=== PATIENT | female | born 1955 | race Caucasian/White ===

== ENCOUNTER 2016-07-05 13:11 | Inpatient (IN) ==
--- NOTE | 2016-07-05 13:42 | Emergency Department Note ---
Disposition Clinical Impression: Rectal bleeding, UTI (urinary tract infection), Colitis, Sepsis Disposition: Admitted As Inpatient Referrals: Richi Garnica MD [Primary Care Provider] - Forms: ED Satisfaction Letter General Adult HPI - General Chief complaint: ED GI Bleed Stated complaint: Passing blood clots through my bowels Source: patient, family Limitations: no limitations - History of Present Illness HPI Narrative: 60-year-old female with a history of rheumatoid arthritis and irritable bowel syndrome reports emergency department complaining of bloody stool. The patient reports that she had some palpitations last evening, she does describe some anxiety, and then she started having bloody bowel movements. She has no personal history of ulcer disease. She has no history of diverticulitis or previous colitis. The patient has had no vaginal bleeding or discharge, she is status post remote hysterectomy. There is been no back pain or urinary problems. The patient has no history of aneurysm. There is no history of trauma she has diffuse abdominal pain. No syncope but she has felt weak. The patient has not been depressed she denies suicidality or homicidality. No chest pain or shortness of breath. No trouble moving her arms or legs independently. No fever or any other complaint or concern. Pain Scale: 7 - Related Data Home Medications Medication Instructions Recorded Confirmed Folic Acid 05/04/15 05/04/15 Lisinopril 05/04/15 Methotrexate 05/04/15 Prilosec Otc 05/04/15 Remicade (For Outpatient Infusion) 05/04/15 Previous Rx's Medication Instructions Recorded PredniSONE 10 mg PO DAILY #20 tablet 05/04/15 Allergies Allergy/AdvReac Type Severity Reaction Status Date / Time Influenza Virus Vaccines AdvReac Numbness Verified 07/05/16 13:17 All systems ED: reviewed and negative except as stated. Past Medical History - Past Medical History Medical history: Reports: arthritis, hyperlipidemia, hypertension, osteoporosis , other Surgical history: Reports: hysterectomy Psychiatric history: Reports: no psych history BOOKING OFFICER history: Reports: no BOOKING OFFICER history - Social History Smoking Status: Former smoker Smokeless Tobacco Status: No Alcohol use: Reports: none Drug use: Reports: none Physical Exam - General Limitations: no limitations General appearance: alert, in no apparent distress - Head Head exam: atraumatic, normocephalic, normal inspection - Eye Eye exam: Present: normal appearance, PERRL, EOMI - ENT ENT exam: normal exam, normal oropharynx, mucous membranes moist, TM's normal bilaterally, normal external ear exam - Neck Neck exam: Present: normal inspection, full ROM, trachea midline. Absent: tenderness - Chest Chest inspection: Present: symmetric chest wall rise. Absent: tenderness - Respiratory Respiratory exam: Present: normal lung sounds bilaterally. Absent: respiratory distress - Cardiovascular Cardiovascular exam: Present: regular rate, normal rhythm, normal heart sounds - Abdominal Exam Abdominal exam: Present: soft, tenderness, normal bowel sounds. Absent: distention, guarding, rebound, rigidity, Liriano's sign, Rovsing's sign, tenderness at McBurney's Point, ascites, pulsatile mass Abdominal tenderness: Present: diffuse, mild - Extremities Exam Extremities exam: Present: normal inspection, full ROM, normal capillary refill. Absent: tenderness, pedal edema, joint swelling, calf tenderness - Expanded Lower Extremity Exam Lower leg exam: Absent: Homans' sign Neurovascular/Tendon exam: Present: normal capillary refill. Absent: motor deficit, sensory deficit, tendon deficit, extremity cold to touch, pallor - Back Exam Back exam: Present: normal inspection, full ROM. Absent: tenderness, CVA tenderness (R), CVA tenderness (L), vertebral tenderness - Neurological Exam Neurological exam: Present: alert, oriented X3, CN II-XII intact. Absent: motor sensory deficit - Psychiatric Psychiatric exam: Present: normal affect, normal mood - Skin Skin exam: Present: warm, dry, intact, normal color. Absent: rash, cyanosis, diaphoresis, erythema, pallor, mottled Course Vital Signs Temperature 97.6 F 07/05/16 13:18 Pulse Rate 102 07/05/16 13:18 Respiratory Rate 18 07/05/16 13:18 Blood Pressure 129/88 07/05/16 13:18 O2 Sat by Pulse Oximetry 100 07/05/16 13:18 Temperature 97.6 F 07/05/16 13:18 Pulse Rate 102 07/05/16 13:42 Respiratory Rate 18 07/05/16 13:42 Blood Pressure 129/88 07/05/16 13:42 O2 Sat by Pulse Oximetry 100 07/05/16 13:42 Oxygen Delivery Oxygen Delivery Room Air Medical Decision Making - [facility] Narrative Medical decision making narrative: The patient had a bloody stool here, heme occult positive. Her CT reveals what appears to be colitis. White count is elevated, she is tachycardic on arrival, also has what appears to be UTI, she states she has had some frequency. Cipro and Flagyl ordered IV as well as 2 L of IV normal saline. The patient has had persistent bleeding, she appears to have acute colitis, she meet sepsis criteria and has an associated UTI, I think it be appropriate to admit the patient to the hospital. I discussed the case with the hospitalist on-call who has accepted patient to their care. - Lab Data Lab results reviewed: Yes I reviewed the patient's lab results. Result diagrams: 07/05/16 14:16 07/05/16 14:16 Lab Results 07/05/16 07/05/16 07/05/16 Range/Units 14:15 14:16 14:16 WBC 12.2 H D (4.3-11.1) K/mcL RBC 4.68 (3.82-4.97) M/mcL Hgb 13.9 (11.5-15.4) g/dL Hct 40.5 (35.3-44.9) % MCV 86.5 (83.0-100.0) fL MCH 29.7 (28.0-33.3) pg MCHC 34.3 (31.6-35.5) g/dL RDW 13.4 (11.5-14.5) % Plt Count 269 (140-400) K/mcL MPV 9.0 L (9.4-12.4) fL Immature Gran % 0.4 (0-4) % Seg Neutrophils % 71.9 % Lymphocytes % 19.3 % Monocytes % 7.1 % Eosinophils % 1.1 % Basophils % 0.2 % Neutrophils # 8.8 (1.6-8.9) K/mcL Lymphocytes # 2.4 (0.6-4.6) K/mcL Monocytes # 0.9 (0.0-1.3) K/mcL Eosinophils # 0.1 (0.0-0.6) K/mcL Basophils # 0.0 (0.0-0.2) K/mcL Immature Plt Fraction 2.5 (1.1-6.1) % PT 11.2 (9.4-12.1) Seconds INR 1.0 APTT 28.5 (26.0-36.0) Seconds Sodium (136-145) mEq/L Potassium (3.5-4.5) mEq/L Chloride (98-109) mEq/L Carbon Dioxide (19-29) mEq/L BUN (7-20) mg/dL Creatinine (0.57-1.11) mg/dL Est GFR ( Amer) (> 60) Est GFR (Non-Af Amer) (> 60) BUN/Creatinine Ratio (6-26) Glucose (70-99) mg/dL Calculated Osmolality (280-300) Lactic Acid (0.5-2.2) mmol/L Calcium (8.6-10.8) mg/dL Total Bilirubin (0.2-1.2) mg/dL Direct Bilirubin (0.0-0.5) mg/dL Indirect Bilirubin (0.0-1.2) mg/dL AST (5-34) Units/L ALT (0-55) Units/L Alkaline Phosphatase (38-126) Units/L C-Reactive Protein (Less than 5) mg/L Serum Total Protein (6.0-8.3) g/dL Albumin (3.5-5.0) g/dL Globulin (2.4-3.5) g/dL Albumin/Globulin Ratio (1.1-2.2) Lipase (8-78) Units/L Urine Color Yellow (Yellow) Urine Clarity Clear (Clear) Urine pH 6.0 (5.0-8.0) pH Units Ur Specific [place] 1.010 (1.010-1.025) Urine Protein Negative (Neg-Trace) mg/dL Urine Glucose (UA) Normal (Normal) mg/dL Urine Ketones Negative (Negative) mg/dL Urine Blood Trace H (Negative) Urine Nitrite Negative (Negative) Urine Bilirubin Negative (Negative) Urine Urobilinogen Normal (Normal) mg/dL Ur Leukocyte Esterase Small H (Negative) Urine Microscopic RBC 0-3 (0-3) per hpf Urine Microscopic WBC 5-15 H (0-3) per hpf Ur Squamous Epith Cells Many H (None-Few) per lpf Urine Bacteria None Seen (None-Few) per hpf Hyaline Casts None Seen (None-Few) per lpf Ur Culture Indicated? YES A (NO) Stool Occult Blood (Negative) Blood Type Antibody Screen 07/05/16 07/05/16 07/05/16 Range/Units 14:16 14:16 14:16 WBC (4.3-11.1) K/mcL RBC (3.82-4.97) M/mcL Hgb (11.5-15.4) g/dL Hct (35.3-44.9) % MCV (83.0-100.0) fL MCH (28.0-33.3) pg MCHC (31.6-35.5) g/dL RDW (11.5-14.5) % Plt Count (140-400) K/mcL MPV (9.4-12.4) fL Immature Gran % (0-4) % Seg Neutrophils % % Lymphocytes % % Monocytes % % Eosinophils % % Basophils % % Neutrophils # (1.6-8.9) K/mcL Lymphocytes # (0.6-4.6) K/mcL Monocytes # (0.0-1.3) K/mcL Eosinophils # (0.0-0.6) K/mcL Basophils # (0.0-0.2) K/mcL Immature Plt Fraction (1.1-6.1) % PT (9.4-12.1) Seconds INR APTT (26.0-36.0) Seconds Sodium 139 (136-145) mEq/L Potassium 3.8 (3.5-4.5) mEq/L Chloride 103 (98-109) mEq/L Carbon Dioxide 28 (19-29) mEq/L BUN 13 (7-20) mg/dL Creatinine 0.99 (0.57-1.11) mg/dL Est GFR ( Amer) > 60 (> 60) Est GFR (Non-Af Amer) 58 L (> 60) BUN/Creatinine Ratio 13 (6-26) Glucose 106 H (70-99) mg/dL Calculated Osmolality 289 (280-300) Lactic Acid 0.9 (0.5-2.2) mmol/L Calcium 9.9 (8.6-10.8) mg/dL Total Bilirubin 0.7 (0.2-1.2) mg/dL Direct Bilirubin 0.2 (0.0-0.5) mg/dL Indirect Bilirubin 0.5 (0.0-1.2) mg/dL AST 13 (5-34) Units/L ALT 16 (0-55) Units/L Alkaline Phosphatase 72 (38-126) Units/L C-Reactive Protein 21 H (Less than 5) mg/L Serum Total Protein 7.6 (6.0-8.3) g/dL Albumin 4.1 (3.5-5.0) g/dL Globulin 3.5 (2.4-3.5) g/dL Albumin/Globulin Ratio 1.2 (1.1-2.2) Lipase 12 (8-78) Units/L Urine Color (Yellow) Urine Clarity (Clear) Urine pH (5.0-8.0) pH Units Ur Specific [place] (1.010-1.025) Urine Protein (Neg-Trace) mg/dL Urine Glucose (UA) (Normal) mg/dL Urine Ketones (Negative) mg/dL Urine Blood (Negative) Urine Nitrite (Negative) Urine Bilirubin (Negative) Urine Urobilinogen (Normal) mg/dL Ur Leukocyte Esterase (Negative) Urine Microscopic RBC (0-3) per hpf Urine Microscopic WBC (0-3) per hpf Ur Squamous Epith Cells (None-Few) per lpf Urine Bacteria (None-Few) per hpf Hyaline Casts (None-Few) per lpf Ur Culture Indicated? (NO) Stool Occult Blood (Negative) Blood Type A POSITIVE Antibody Screen NEGATIVE 07/05/16 Range/Units 15:21 WBC (4.3-11.1) K/mcL RBC (3.82-4.97) M/mcL Hgb (11.5-15.4) g/dL Hct (35.3-44.9) % MCV (83.0-100.0) fL MCH (28.0-33.3) pg MCHC (31.6-35.5) g/dL RDW (11.5-14.5) % Plt Count (140-400) K/mcL MPV (9.4-12.4) fL Immature Gran % (0-4) % Seg Neutrophils % % Lymphocytes % % Monocytes % % Eosinophils % % Basophils % % Neutrophils # (1.6-8.9) K/mcL Lymphocytes # (0.6-4.6) K/mcL Monocytes # (0.0-1.3) K/mcL Eosinophils # (0.0-0.6) K/mcL Basophils # (0.0-0.2) K/mcL Immature Plt Fraction (1.1-6.1) % PT (9.4-12.1) Seconds INR APTT (26.0-36.0) Seconds Sodium (136-145) mEq/L Potassium (3.5-4.5) mEq/L Chloride (98-109) mEq/L Carbon Dioxide (19-29) mEq/L BUN (7-20) mg/dL Creatinine (0.57-1.11) mg/dL Est GFR ( Amer) (> 60) Est GFR (Non-Af Amer) (> 60) BUN/Creatinine Ratio (6-26) Glucose (70-99) mg/dL Calculated Osmolality (280-300) Lactic Acid (0.5-2.2) mmol/L Calcium (8.6-10.8) mg/dL Total Bilirubin (0.2-1.2) mg/dL Direct Bilirubin (0.0-0.5) mg/dL Indirect Bilirubin (0.0-1.2) mg/dL AST (5-34) Units/L ALT (0-55) Units/L Alkaline Phosphatase (38-126) Units/L C-Reactive Protein (Less than 5) mg/L Serum Total Protein (6.0-8.3) g/dL Albumin (3.5-5.0) g/dL Globulin (2.4-3.5) g/dL Albumin/Globulin Ratio (1.1-2.2) Lipase (8-78) Units/L Urine Color (Yellow) Urine Clarity (Clear) Urine pH (5.0-8.0) pH Units Ur Specific [place] (1.010-1.025) Urine Protein (Neg-Trace) mg/dL Urine Glucose (UA) (Normal) mg/dL Urine Ketones (Negative) mg/dL Urine Blood (Negative) Urine Nitrite (Negative) Urine Bilirubin (Negative) Urine Urobilinogen (Normal) mg/dL Ur Leukocyte Esterase (Negative) Urine Microscopic RBC (0-3) per hpf Urine Microscopic WBC (0-3) per hpf Ur Squamous Epith Cells (None-Few) per lpf Urine Bacteria (None-Few) per hpf Hyaline Casts (None-Few) per lpf Ur Culture Indicated? (NO) Stool Occult Blood Positive A (Negative) Blood Type Antibody Screen - Radiology Data Radiology results reviewed: Yes I reviewed the patient's radiology results.
[2016-07-05 14:29] LABS: Basophils % 0.2 %; Eosinophils # 0.1 K/mcL (0.0-0.6); Eosinophils % 1.1 %; Hematocrit 40.5 % (35.3-44.9); Hemoglobin 13.9 g/dL (11.5-15.4); Immature Granulocytes % 0.4 % (0-4); Immature Platelets 2.5 % (1.1-6.1); Lymphocytes # 2.4 K/mcL (0.6-4.6); Lymphocytes % 19.3 %; Mean Corpuscular HGB Conc 34.3 g/dL (31.6-35.5); Mean Corpuscular Hemoglobin 29.7 pg (28.0-33.3); Mean Corpuscular Volume 86.5 fL (83.0-100.0); Monocytes # 0.9 K/mcL (0.0-1.3); Monocytes % 7.1 %; Neutrophils # 8.8 K/mcL (1.6-8.9); Platelet Count 269 K/mcL (140-400); Red Blood Count 4.68 M/mcL (3.82-4.97); Red Cell Distribution Width 13.4 % (11.5-14.5); Segmented Neutrophils % 71.9 %
[2016-07-05 14:31] LABS: Bilirubin,Urine Negative (Negative); Blood,Urine Trace (Negative); Clarity,Urine Clear (Clear); Color,Urine Yellow (Yellow); Glucose,Urine (UA) Normal (Normal); Ketones,Urine Negative (Negative); Leukocyte Esterase,Urine Small (Negative); Nitrite,Urine Negative (Negative); Protein,Urine Negative (Neg-Trace); Urobilinogen,Urine Normal (Normal)
[2016-07-05 14:32] LABS: Bacteria,Urine None Seen per hpf (None-Few); Hyaline Casts,Urine None Seen per lpf (None-Few); RBC,Urine 0-3 per hpf (0-3); Squamous Epithelial Cell,Urine Many per lpf (None-Few)
[2016-07-05 14:33] LABS: Prothrombin Time 11.2 Seconds (9.4-12.1)
[2016-07-05 14:36] LABS: Activated Partial Thrombo Time 28.5 Seconds (26.0-36.0)
[2016-07-05 14:46] LABS: Alanine Aminotransferase 16 Units/L (0-55); Albumin 4.1 g/dL (3.5-5.0); Albumin/Globulin Ratio 1.2 (1.1-2.2); Alkaline Phosphatase 72 Units/L (38-126); Aspartate Amino Transferase 13 Units/L (5-34); BUN/Creatinine Ratio 13 (6-26); Bilirubin,Direct 0.2 mg/dL (0.0-0.5); Bilirubin,Indirect 0.5 mg/dL (0.0-1.2); Bilirubin,Total 0.7 mg/dL (0.2-1.2); Blood Urea Nitrogen 13 mg/dL (7-20); C-Reactive Protein 21 mg/L (Less than 5); Calcium 9.9 mg/dL (8.6-10.8); Carbon Dioxide 28 mEq/L (19-29); Chloride 103 mEq/L (98-109); Globulin 3.5 g/dL (2.4-3.5); Glucose 106 mg/dL (70-99); Lipase 12 Units/L (8-78); Osmolality,Calculated 289 (280-300); Potassium 3.8 mEq/L (3.5-4.5); Sodium 139 mEq/L (136-145); Total Protein 7.6 g/dL (6.0-8.3); eGFR For African Americans > 60 (> 60); eGFR For Non-African Americans 58 (> 60)
[2016-07-05] MEDS ORDERED: MetroNIDAZOLE 500 MG/100 ML 500 MG/100 ML BAG IVPB ONE (18:00)
[2016-07-05] MEDS: 0.9 % Sodium Chloride 1,000 ML IVC SCH ×5 (20:03→22:20)
[2016-07-05] MEDS ORDERED: traMADol 50 MG TABLET PO ONE (20:40)
[2016-07-05] MEDS ORDERED: Naloxone 0.4 MG/ML INJ IVP PRN (21:36)
--- NOTE | 2016-07-05 22:25 | Internal Med History&Physical ---
Date of Encounter: 07/05/16 Time of Encounter: 22:19 Assessment and Plan (1) Sepsis Current visit: Yes Status: Acute Patient with UTI, colitis, elevated WBC count to 12.2 and tachycardia with HR in the low 100s initially, meeting criteria for sepsis. Lactate normal at 0.9. Blood cultures ordered and sent. 2L fluid bolus given. 0.9NS at 100mL/hr. IVPB Cipro and Flagyl Qualifiers: Sepsis type: sepsis due to unspecified organism Qualified Code(s): A41.9 - Sepsis, unspecified organism (2) Colitis Current visit: Yes Status: Acute patient with several episodes of bloody diarrhea, nausea, poor appetite. She reports history of IBS. CT abd/pelvis showed circumferential wall thickening and mild surrounding fat stranding involving the transverse and proximal colon consistent with colitis. 2L of bolus given in ED IV fluids 0.9NS at 100mL/hr Cipro and Flagyl IVPB Follow up with GI as an outpatient. (3) Rectal bleeding Current visit: Yes Status: Acute Patient with bloody stools since yesterday. Hgb/Hct 13.9/40.5. No indication for transfusion at this time. H&H Q6 hours. Patient should follow up with gastroenterology as an outpatient for colonoscopy once colitis resolves. (4) UTI (urinary tract infection) Current visit: Yes Status: Acute UA consistent with UTI. Patient getting IVPB Cipro which should cover her UTI. Await culture results. Qualifiers: Urinary tract infection type: acute cystitis Hematuria presence: without hematuria Qualified Code(s): N30.00 - Acute cystitis without hematuria (5) DVT prophylaxis Current visit: Yes Status: Acute encourage ambulation anti-embolic stockings pharmacologic prophylaxis contraindicated in patient with active bleed. Internal Medicine - H&P: HPI Chief complaint: bloody stool Admitted From: Emergency Dept Plans for Post Hospital Care: Home History of present illness: Ms. Tinoco is a 60 year old female with rheumatoid arthritis, IBS, and hypertension presented to the emergency department today with complaints of bloody stool. Patient reports that yesterday evening she had an episode which began with palpitations warm numbness and tingling in her hands and abdominal pain with an urgent need to defecate. She describes this as her common symptoms of her IBS. However this episode she had bloody stool, and she has never had bloody stools before. She had another episode this morning which prompted her to come to the emergency department. She had an episode again in the emergency department and they were able to send the stool for occult blood and it was positive. Patient states her episodes have been going on for 5 years , are random in nature, they can be as frequent as twice a week or as infrequent as every 6 months. Reports she had colonoscopy and EGD when these episodes first started that revealed nothing and so she was diagnosed with IBS. She denies any lightheadedness, dizziness, chest pain, shortness of breath. She reports her abdominal pain is relieved after defecation. She reports she has had nausea since last night and poor appetite. Evaluation in the emergency department included a CT of the abdomen and pelvis which showed circumferential wall thickening and mild surrounding fat stranding involving the transverse and proximal colon consistent with colitis. Her blood cell count was mildly elevated at 12.2. UA was concerning for UTI. Patient was tachycardic with heart rate in the low 100s. She was given fluid boluses and started on Cipro and Flagyl. On exam, patient is alert and oriented, in no acute distress. Heart is regular rate and rhythm, lungs are clear bilaterally to auscultation. Abdomen is soft, nontender, positive bowel sounds. Past Med Surg Social Fam HX - Past Medical History Medical history: hypertension, osteoporosis, RA Psychiatric history: no psych history - Past Surgical History Surgical History: hysterectomy - Social History Smoking Status: Former smoker Smokeless Tobacco Status: No Alcohol use: none Drug use: none - Family History Father Living Status: Cause of : Arhritis- amputation complications Hx Family Musculoskeletal Disorders: Yes (Rhematoid Arhtritis) Mother Living Status: Cause of : Leukemia Hx Family Cancer: Yes (Lymphatic Leukemia) Internal Medicine - H&P: Meds Folic Acid 800 mg PO DAILY 05/04/15 [History] Methotrexate mg PO QWEEK 05/04/15 [History] Prilosec Otc 20 mg PO DAILY 05/04/15 [History] Dicyclomine [Bentyl] 10 mg PO BID 07/05/16 [History] Lisinopril-HCTZ 10-12.5 [Prinzide 10-12.5] 10 - 12.5 mg PO DAILY 07/05/16 [ History] Zolpidem [Ambien] 10 mg PO HS PRN 07/05/16 [History] Allergies Influenza Virus Vaccines Adverse Reaction (Verified 07/05/16 13:17) Numbness All Systems PM: A 10-system review of systems was performed and is negative for pertinent findings except as documented above in the HPI. - Constitutional Constitutional: no chills, no fever(s), no night sweats - EENT Eyes: no change in vision, no discharge, no pain, no photophobia Nose, mouth and throat: no dysphagia, no nasal discharge, no neck pain, no sore throat - Cardiovascular Cardiovascular ROS IM: no chest pain, no diaphoresis, no dyspnea, no lightheadedness, no palpitations, no syncope - Respiratory Respiratory: no cough, no dyspnea, no wheezing, no excessive phlegm production - Gastrointestinal Gastrointestinal: abdominal pain, bloating, diarrhea, hematochezia, nausea, no hematemesis, no melena, no vomiting - Genitourinary Genitourinary: no change in urinary stream, no dysuria, no flank pain, no hematuria - Musculoskeletal Musculoskeletal ROS IM: no numbness, no tingling - Integumentary Integumentary IM: no rash, no unusual bruising - Neurological Neurological ROS: no confusion, no convulsions, no focal weakness, no numbness, no tingling, no tremor(s) - Hematologic/Lymphatic Hematologic/Lymphatic: no easy bruising - Constitutional Vitals: Temp Pulse Resp BP Pulse Ox 98.0 F 86 16 148/90 97 07/05/16 21:46 07/05/16 21:46 07/05/16 21:46 07/05/16 21:46 07/05/16 21:46 General appearance: Present: A&O X 3, pleasant, no acute distress - Head Head exam: Present: atraumatic, normocephalic - Eye Eye exam: Present: PERRL, conjuntiva pink, sclera anicteric Pupils: Present: PERRL - Neck Neck exam general surgery: Present: supple, trachea midline. Absent: lymphadenopathy - Respiratory Respiratory exam: Present: CTAB. Absent: accessory muscle use, rales, rhonchi, wheezes - Cardiovascular Cardiovascular exam: Present: RRR, +S1, +S2. Absent: diastolic murmur, gallop, rubs, systolic murmur - GI/Abdominal GI/Abdominal exam: Present: normal bowel sounds, soft, tenderness (mild diffuse) , no peritoneal signs. Absent: distended - Extremities Exam Extremities exam: Present: warm, radial pulses palpable and symetrical. Absent : calf tenderness, cyanotic, pedal edema - Neurological Exam Neurological exam: Present: CN II-XII intact, oriented X3, no focal deficits. Absent: facial droop, speech deficit - Skin Skin exam: Present: dry, intact Internal Med - H&P Results - Labs CBC & Chem 7: 07/05/16 22:27 07/05/16 14:16 Labs: All Lab Results (24 Hours) 07/05/16 07/05/16 07/05/16 Range/Units 14:15 14:16 14:16 WBC 12.2 H D (4.3-11.1) K/mcL RBC 4.68 (3.82-4.97) M/mcL Hgb 13.9 (11.5-15.4) g/dL Hct 40.5 (35.3-44.9) % MCV 86.5 (83.0-100.0) fL MCH 29.7 (28.0-33.3) pg MCHC 34.3 (31.6-35.5) g/dL RDW 13.4 (11.5-14.5) % Plt Count 269 (140-400) K/mcL MPV 9.0 L (9.4-12.4) fL Immature Gran % 0.4 (0-4) % Seg Neutrophils % 71.9 % Lymphocytes % 19.3 % Monocytes % 7.1 % Eosinophils % 1.1 % Basophils % 0.2 % Neutrophils # 8.8 (1.6-8.9) K/mcL Lymphocytes # 2.4 (0.6-4.6) K/mcL Monocytes # 0.9 (0.0-1.3) K/mcL Eosinophils # 0.1 (0.0-0.6) K/mcL Basophils # 0.0 (0.0-0.2) K/mcL Immature Plt Fraction 2.5 (1.1-6.1) % PT 11.2 (9.4-12.1) Seconds INR 1.0 APTT 28.5 (26.0-36.0) Seconds Sodium (136-145) mEq/L Potassium (3.5-4.5) mEq/L Chloride (98-109) mEq/L Carbon Dioxide (19-29) mEq/L BUN (7-20) mg/dL Creatinine (0.57-1.11) mg/dL Est GFR ( Amer) (> 60) Est GFR (Non-Af Amer) (> 60) BUN/Creatinine Ratio (6-26) Glucose (70-99) mg/dL Calculated Osmolality (280-300) Lactic Acid (0.5-2.2) mmol/L Calcium (8.6-10.8) mg/dL Total Bilirubin (0.2-1.2) mg/dL Direct Bilirubin (0.0-0.5) mg/dL Indirect Bilirubin (0.0-1.2) mg/dL AST (5-34) Units/L ALT (0-55) Units/L Alkaline Phosphatase (38-126) Units/L C-Reactive Protein (Less than 5) mg/L Serum Total Protein (6.0-8.3) g/dL Albumin (3.5-5.0) g/dL Globulin (2.4-3.5) g/dL Albumin/Globulin Ratio (1.1-2.2) Lipase (8-78) Units/L Urine Color Yellow (Yellow) Urine Clarity Clear (Clear) Urine pH 6.0 (5.0-8.0) pH Units Ur Specific [place] 1.010 (1.010-1.025) Urine Protein Negative (Neg-Trace) mg/dL Urine Glucose (UA) Normal (Normal) mg/dL Urine Ketones Negative (Negative) mg/dL Urine Blood Trace H (Negative) Urine Nitrite Negative (Negative) Urine Bilirubin Negative (Negative) Urine Urobilinogen Normal (Normal) mg/dL Ur Leukocyte Esterase Small H (Negative) Urine Microscopic RBC 0-3 (0-3) per hpf Urine Microscopic WBC 5-15 H (0-3) per hpf Ur Squamous Epith Cells Many H (None-Few) per lpf Urine Bacteria None Seen (None-Few) per hpf Hyaline Casts None Seen (None-Few) per lpf Ur Culture Indicated? YES A (NO) Stool Occult Blood (Negative) Blood Type Antibody Screen 07/05/16 07/05/16 07/05/16 Range/Units 14:16 14:16 14:16 WBC (4.3-11.1) K/mcL RBC (3.82-4.97) M/mcL Hgb (11.5-15.4) g/dL Hct (35.3-44.9) % MCV (83.0-100.0) fL MCH (28.0-33.3) pg MCHC (31.6-35.5) g/dL RDW (11.5-14.5) % Plt Count (140-400) K/mcL MPV (9.4-12.4) fL Immature Gran % (0-4) % Seg Neutrophils % % Lymphocytes % % Monocytes % % Eosinophils % % Basophils % % Neutrophils # (1.6-8.9) K/mcL Lymphocytes # (0.6-4.6) K/mcL Monocytes # (0.0-1.3) K/mcL Eosinophils # (0.0-0.6) K/mcL Basophils # (0.0-0.2) K/mcL Immature Plt Fraction (1.1-6.1) % PT (9.4-12.1) Seconds INR APTT (26.0-36.0) Seconds Sodium 139 (136-145) mEq/L Potassium 3.8 (3.5-4.5) mEq/L Chloride 103 (98-109) mEq/L Carbon Dioxide 28 (19-29) mEq/L BUN 13 (7-20) mg/dL Creatinine 0.99 (0.57-1.11) mg/dL Est GFR ( Amer) > 60 (> 60) Est GFR (Non-Af Amer) 58 L (> 60) BUN/Creatinine Ratio 13 (6-26) Glucose 106 H (70-99) mg/dL Calculated Osmolality 289 (280-300) Lactic Acid 0.9 (0.5-2.2) mmol/L Calcium 9.9 (8.6-10.8) mg/dL Total Bilirubin 0.7 (0.2-1.2) mg/dL Direct Bilirubin 0.2 (0.0-0.5) mg/dL Indirect Bilirubin 0.5 (0.0-1.2) mg/dL AST 13 (5-34) Units/L ALT 16 (0-55) Units/L Alkaline Phosphatase 72 (38-126) Units/L C-Reactive Protein 21 H (Less than 5) mg/L Serum Total Protein 7.6 (6.0-8.3) g/dL Albumin 4.1 (3.5-5.0) g/dL Globulin 3.5 (2.4-3.5) g/dL Albumin/Globulin Ratio 1.2 (1.1-2.2) Lipase 12 (8-78) Units/L Urine Color (Yellow) Urine Clarity (Clear) Urine pH (5.0-8.0) pH Units Ur Specific [place] (1.010-1.025) Urine Protein (Neg-Trace) mg/dL Urine Glucose (UA) (Normal) mg/dL Urine Ketones (Negative) mg/dL Urine Blood (Negative) Urine Nitrite (Negative) Urine Bilirubin (Negative) Urine Urobilinogen (Normal) mg/dL Ur Leukocyte Esterase (Negative) Urine Microscopic RBC (0-3) per hpf Urine Microscopic WBC (0-3) per hpf Ur Squamous Epith Cells (None-Few) per lpf Urine Bacteria (None-Few) per hpf Hyaline Casts (None-Few) per lpf Ur Culture Indicated? (NO) Stool Occult Blood (Negative) Blood Type A POSITIVE Antibody Screen NEGATIVE 07/05/16 07/05/16 Range/Units 15:21 22:27 WBC (4.3-11.1) K/mcL RBC (3.82-4.97) M/mcL Hgb 13.1 (11.5-15.4) g/dL Hct 38.2 (35.3-44.9) % MCV (83.0-100.0) fL MCH (28.0-33.3) pg MCHC (31.6-35.5) g/dL RDW (11.5-14.5) % Plt Count (140-400) K/mcL MPV (9.4-12.4) fL Immature Gran % (0-4) % Seg Neutrophils % % Lymphocytes % % Monocytes % % Eosinophils % % Basophils % % Neutrophils # (1.6-8.9) K/mcL Lymphocytes # (0.6-4.6) K/mcL Monocytes # (0.0-1.3) K/mcL Eosinophils # (0.0-0.6) K/mcL Basophils # (0.0-0.2) K/mcL Immature Plt Fraction (1.1-6.1) % PT (9.4-12.1) Seconds INR APTT (26.0-36.0) Seconds Sodium (136-145) mEq/L Potassium (3.5-4.5) mEq/L Chloride (98-109) mEq/L Carbon Dioxide (19-29) mEq/L BUN (7-20) mg/dL Creatinine (0.57-1.11) mg/dL Est GFR ( Amer) (> 60) Est GFR (Non-Af Amer) (> 60) BUN/Creatinine Ratio (6-26) Glucose (70-99) mg/dL Calculated Osmolality (280-300) Lactic Acid (0.5-2.2) mmol/L Calcium (8.6-10.8) mg/dL Total Bilirubin (0.2-1.2) mg/dL Direct Bilirubin (0.0-0.5) mg/dL Indirect Bilirubin (0.0-1.2) mg/dL AST (5-34) Units/L ALT (0-55) Units/L Alkaline Phosphatase (38-126) Units/L C-Reactive Protein (Less than 5) mg/L Serum Total Protein (6.0-8.3) g/dL Albumin (3.5-5.0) g/dL Globulin (2.4-3.5) g/dL Albumin/Globulin Ratio (1.1-2.2) Lipase (8-78) Units/L Urine Color (Yellow) Urine Clarity (Clear) Urine pH (5.0-8.0) pH Units Ur Specific [place] (1.010-1.025) Urine Protein (Neg-Trace) mg/dL Urine Glucose (UA) (Normal) mg/dL Urine Ketones (Negative) mg/dL Urine Blood (Negative) Urine Nitrite (Negative) Urine Bilirubin (Negative) Urine Urobilinogen (Normal) mg/dL Ur Leukocyte Esterase (Negative) Urine Microscopic RBC (0-3) per hpf Urine Microscopic WBC (0-3) per hpf Ur Squamous Epith Cells (None-Few) per lpf Urine Bacteria (None-Few) per hpf Hyaline Casts (None-Few) per lpf Ur Culture Indicated? (NO) Stool Occult Blood Positive A (Negative) Blood Type Antibody Screen - Diagnostic Studies CT scan - abdomen Additional comments: Abdomen/Pelvis CT 04/08/17 15:38 IMPRESSION: Circumferential wall thickening and mild surrounding fat stranding involves the transverse and proximal descending colon, consistent with colitis. D/ / Harvey Watters MD / Harvey Watters MD Interpreting Provider: Harvey Watters MD
[2016-07-05 22:34] LABS: Hematocrit 38.2 % (35.3-44.9); Hemoglobin 13.1 g/dL (11.5-15.4)
[2016-07-06 05:10] LABS: Basophils % 0.3 %; Eosinophils # 0.2 K/mcL (0.0-0.6); Eosinophils % 2.1 %; Hematocrit 38.2 % (35.3-44.9); Hemoglobin 12.8 g/dL (11.5-15.4); Immature Granulocytes % 0.4 % (0-4); Lymphocytes # 2.8 K/mcL (0.6-4.6); Mean Corpuscular HGB Conc 33.5 g/dL (31.6-35.5); Mean Corpuscular Hemoglobin 29.5 pg (28.0-33.3); Mean Platelet Volume 9.7 fL (9.4-12.4); Monocytes # 0.8 K/mcL (0.0-1.3); Monocytes % 7.9 %; Neutrophils # 5.8 K/mcL (1.6-8.9); Platelet Count 228 K/mcL (140-400); Red Blood Count 4.34 M/mcL (3.82-4.97); Red Cell Distribution Width 13.8 % (11.5-14.5); Segmented Neutrophils % 60.3 %
[2016-07-06 05:28] LABS: BUN/Creatinine Ratio 11 (6-26); Blood Urea Nitrogen 10 mg/dL (7-20); Calcium 8.8 mg/dL (8.6-10.8); Carbon Dioxide 25 mEq/L (19-29); Chloride 106 mEq/L (98-109); Glucose 100 mg/dL (70-99); Osmolality,Calculated 289 (280-300); Potassium 3.2 mEq/L (3.5-4.5); Sodium 140 mEq/L (136-145); eGFR For African Americans > 60 (> 60); eGFR For Non-African Americans > 60 (> 60)
[2016-07-06] MEDS: MetroNIDAZOLE 500 MG/100 ML 500 MG/100 ML BAG IVPB SCH ×3 (05:37→21:09)
[2016-07-06] MEDS: 0.9 % Sodium Chloride 1,000 ML IVC SCH ×2 (05:38→20:02)
[2016-07-06] MEDS: Folic Acid 1 MG TABLET PO SCH (08:02)
[2016-07-06] MEDS: Acetaminophen 325 MG TABLET PO PRN ×2 (08:05→18:33)
--- NOTE | 2016-07-06 15:23 | Internal Med Progress Note ---
Date of Encounter: 07/06/16 Time of Encounter: 15:22 - Assessment and plan (1) Rectal bleeding Current Visit: Yes Status: Acute Assessment and plan: I will continue treatment with ciprofloxacin and Flagyl. Follow-up white blood cell count temperature curve and serial abdominal exam. Follow-up clinically. Follow-up hemoglobin and hematocrit in the morning (2) UTI (urinary tract infection) Current Visit: Yes Status: Acute Assessment and plan: Continues with Cipro. Follow-up urine culture and sensitivities. Qualifiers: Urinary tract infection type: acute cystitis Hematuria presence: without hematuria Qualified Code(s): N30.00 - Acute cystitis without hematuria (3) Colitis Current Visit: Yes Status: Acute Assessment and plan: Cipro and Flagyl. (4) Sepsis Current Visit: Yes Status: Acute Assessment and plan: IV fluids and IV antibiotics. No evidence of severe sepsis. Follow-up Howard cultures. Qualifiers: Sepsis type: sepsis due to unspecified organism Qualified Code(s): A41.9 - Sepsis, unspecified organism (5) DVT prophylaxis Current Visit: Yes Status: Acute Assessment and plan: I will start Lovenox. - Subjective Interval history: patient reports abdominal pain and liquid diarrhea started yesterday afternoon follwn passing dark blood and blood clots per rectum. She had several associated abdominal pain. Currently she reports mild abdominal pain, rectal bleeding has stopped over the last 24 hours. She denies chest pain shortness of breath visual loss and headache. - Constitutional Vitals: Temp Pulse Resp BP Pulse Ox 97.6 F 73 16 107/72 96 07/06/16 14:46 07/06/16 14:46 07/06/16 14:46 07/06/16 14:46 07/06/16 14:46 General appearance: Present: A&O X 3, pleasant, no acute distress - Eye Eye exam: Present: PERRL, conjuntiva pink, sclera anicteric Pupils: Present: PERRL - Respiratory Respiratory exam: Present: CTAB. Absent: accessory muscle use, rales, rhonchi, wheezes - Cardiovascular Cardiovascular exam: Present: RRR, +S1, +S2. Absent: diastolic murmur, gallop, rubs, systolic murmur - GI/Abdominal GI/Abdominal exam: Present: normal bowel sounds, soft, no peritoneal signs. Absent: distended, tenderness - Extremities Exam Extremities exam: Present: warm, radial pulses palpable and symetrical. Absent : calf tenderness, cyanotic, pedal edema - Skin Skin exam: Present: dry, intact Internal Medicine: Result - Labs CBC & Chem 7: 07/06/16 03:40 07/06/16 03:40 Labs: Short CBC 07/05/16 07/06/16 Range/Units 22:27 03:40 WBC 9.6 (4.3-11.1) K/mcL Hgb 13.1 12.8 (11.5-15.4) g/dL Hct 38.2 38.2 (35.3-44.9) % Plt Count 228 (140-400) K/mcL Neutrophils # 5.8 (1.6-8.9) K/mcL BMP 07/06/16 03:40 Sodium 140 Potassium 3.2 L Chloride 106 Carbon Dioxide 25 BUN 10 Creatinine 0.91 Glucose 100 H Calcium 8.8 - ABG Interpretation ABG results: PT/INR, D-dimer PT 11.2 Seconds (9.4-12.1) 07/05/16 14:16 Consult Discharge Plan - Plan Referrals: Richi Garnica MD [Primary Care Provider] -
[2016-07-06] MEDS ORDERED: *HR* HYDROcodone/Acet 5/325 mg TABLET PO PRN (19:18)
[2016-07-07 04:04] LABS: Basophils % 0.4 %; Eosinophils # 0.2 K/mcL (0.0-0.6); Eosinophils % 2.9 %; Hematocrit 34.7 % (35.3-44.9); Hemoglobin 11.8 g/dL (11.5-15.4); Immature Granulocytes % 0.3 % (0-4); Lymphocytes # 2.7 K/mcL (0.6-4.6); Lymphocytes % 36.5 %; Mean Corpuscular Hemoglobin 29.8 pg (28.0-33.3); Mean Corpuscular Volume 87.6 fL (83.0-100.0); Mean Platelet Volume 9.3 fL (9.4-12.4); Monocytes # 0.6 K/mcL (0.0-1.3); Neutrophils # 3.8 K/mcL (1.6-8.9); Platelet Count 198 K/mcL (140-400); Red Blood Count 3.96 M/mcL (3.82-4.97); Red Cell Distribution Width 13.7 % (11.5-14.5); Segmented Neutrophils % 51.9 %
[2016-07-07 04:18] LABS: BUN/Creatinine Ratio 17 (6-26); Blood Urea Nitrogen 15 mg/dL (7-20); Calcium 8.8 mg/dL (8.6-10.8); Carbon Dioxide 22 mEq/L (19-29); Chloride 108 mEq/L (98-109); Glucose 106 mg/dL (70-99); Osmolality,Calculated 291 (280-300); Potassium 3.6 mEq/L (3.5-4.5); Sodium 140 mEq/L (136-145); eGFR For African Americans > 60 (> 60); eGFR For Non-African Americans > 60 (> 60)
[2016-07-07] MEDS: MetroNIDAZOLE 500 MG/100 ML 500 MG/100 ML BAG IVPB SCH ×2 (05:23→11:45)
[2016-07-07] MEDS: Folic Acid 1 MG TABLET PO SCH (07:54)
[2016-07-07] MEDS: 0.9 % Sodium Chloride 1,000 ML IVC SCH (11:33)
--- NOTE | 2016-07-07 12:35 | Discharge Summary ---
Date of Encounter: 07/07/16 Time of Encounter: 12:28 - Discharge Diagnosis (1) Rectal bleeding Priority: Secondary Status: Acute (2) UTI (urinary tract infection) Priority: Secondary Status: Acute Qualifiers: Urinary tract infection type: acute cystitis Hematuria presence: without hematuria Qualified Code(s): N30.00 - Acute cystitis without hematuria (3) Colitis Priority: Primary Status: Acute (4) Sepsis Priority: Secondary Status: Acute Qualifiers: Sepsis type: sepsis due to unspecified organism Qualified Code(s): A41.9 - Sepsis, unspecified organism (5) DVT prophylaxis Priority: Secondary Status: Acute - Discharge Medications Prescriptions: HYDROcodone/Acet 5/325 mg [[place] 5-325 mg] 1 tab PO Q4HR PRN #20 tablet PRN Reason: Pain Levofloxacin [Levaquin] 500 mg PO DAILY #5 tablet MetroNIDAZOLE [Flagyl] 500 mg PO TID #15 tablet Home Medications: Folic Acid 0.8 mg PO DAILY 05/04/15 [History] Methotrexate [Otrexup] 15 mg PO SA 05/04/15 [History] Omeprazole Magnesium [Prilosec Otc] 20 mg PO DAILY 05/04/15 [History] Dicyclomine [Bentyl] 10 mg PO BID 07/05/16 [History] Lisinopril-HCTZ 10-12.5 [Prinzide 10-12.5] 1 tab PO DAILY 07/05/16 [History] Zolpidem [Ambien] 10 mg PO HS 07/05/16 [History] Alendronate Sodium [Fosamax] 70 mg PO MO 07/06/16 [History] HYDROcodone/Acet 5/325 mg [[place] 5-325 mg] 1 tab PO Q4HR PRN #20 tablet [Rx] Levofloxacin [Levaquin] 500 mg PO DAILY #5 tablet 07/07/16 [Rx] MetroNIDAZOLE [Flagyl] 500 mg PO TID #15 tablet 07/07/16 [Rx] Allergies/Adverse Reactions: Allergies Influenza Virus Vaccines Adverse Reaction (Verified 07/05/16 13:17) Numbness Date of admission: 07/05/16 21:36 Primary care physician: Richi Garnica MD - Patient Status Disposition: Home, Self-Care Condition: Good Functional capacity at discharge: independent ambulation Overall status at discharge: patient is back to baseline - Discharge Instructions Follow Up With: Beulah Quinn CNP [Advanced Practice Nurse] - 07/10/16 1:45 pm Ines Whelan MD [Partnered Physician] - 07/30/16 3:30 pm () - Diet and Activity Activity: increase activity as tolerated Diet: low salt diet Hospital course: Hospital presentation: Ms. Tinoco is a 60 year old female rheumatoid arthritis, IBS, and hypertension who presented to the emergency department with complaints of bloody stool. Patient reports that yesterday evening she had an episode which began with palpitations warm numbness and tingling in her hands and abdominal pain with an urgent need to defecate. She describes this as her common symptoms of her IBS. However this episode she had bloody stool, and she has never had bloody stools before. She had another episode this morning which prompted her to come to the emergency department. She had an episode again in the emergency department and they were able to send the stool for occult blood and it was positive. Patient states her episodes have been going on for 5 years , are random in nature, they can be as frequent as twice a week or as infrequent as every 6 months. Reports she had colonoscopy and EGD when these episodes first started that revealed nothing and so she was diagnosed with IBS. Hospital course: She had a CT scan of the abdomen and pelvis which showed evidence of colitis. She was admitted to the medical service. Treated with IV fluids and IV antibiotics. She made a quick clinical improvement. Her rectal bleeding has resolved. Her hemoglobin trended down slightly however today it remained within normal limits at 11.8. She remained afebrile and her white blood cell count trending down. She was able to tolerate an oral diet. She did not have any more diarrhea or rectal bleeding. She will be prescribed a five-day course of Levaquin and Flagyl and discharged home.. She was advised to follow-up with a conversion developer regarding repeat colonoscopy if needed. She was advised to follow-up with primary care physician. - Time Spent with Patient Total time spent providing and/or coordinating discharge services: - Constitutional Vitals: Temp Pulse Resp BP Pulse Ox 98.5 F 75 14 110/73 98 07/07/16 11:34 07/07/16 11:34 07/07/16 11:34 07/07/16 11:34 07/07/16 11:34 General appearance: Present: A&O X 3, pleasant, no acute distress - Neck Neck exam general surgery: Present: supple, trachea midline. Absent: lymphadenopathy - Respiratory Respiratory exam: Present: CTAB. Absent: accessory muscle use, rales, rhonchi, wheezes - Cardiovascular Cardiovascular exam: Present: RRR, +S1, +S2. Absent: diastolic murmur, gallop, rubs, systolic murmur - GI/Abdominal GI/Abdominal exam: Present: normal bowel sounds, soft, no peritoneal signs. Absent: distended, tenderness - Extremities Exam Extremities exam: Present: warm, radial pulses palpable and symetrical. Absent : calf tenderness, cyanotic, pedal edema - VTE Documentation of Mechanical Device: Graduated compression elastic hosiery
[2016-07-08 10:51] VITALS: BP 110/73
== END 2016-07-07 14:51 | disposition home or self-care (01) | DRG 872 ==
LOC: EMEROO 13:11 → 3ANU 13:11
PROVIDERS: ADMIT Nurse Practitioner Family; ATTEND Internal Medicine